=== PATIENT | male | born 1975 | race Two or more races ===

== ENCOUNTER 2018-12-02 07:46 | Emergency (ER) | payer MEDICAID ==
[~2018-12-02] VITALS: Ht 170.2 cm; Wt 75.7 kg
[2018-12-02 07:50] VITALS: Ht 170.2 cm; Wt 75.7 kg
[2018-12-02] MEDS ORDERED: NAPR-985 PO (09:32)
[2018-12-02 09:56] VITALS: BP 134/81; PULSE 56; RESP 18
--- NOTE | 2018-12-02 10:07 | ERD ---
ER Documentation Chief Complaint Chief Complaint RT INDEX FINGER SLAMMED ON CAR DOOR. HPI 43-year-old male presenting with pain to his right index finger. 1 week ago patient slammed his 4 fingers in the door however he has had continued pain to the distal tip of his right index finger. He denies any numbness or tingling. [id number]. Denies other medical problems. NKDA. Surgical history denies. Social history denies ROS All systems reviewed and are negative except as per history of present illness. Medications Home Meds Active Scripts Naproxen* (Naprosyn*) 500 Mg Tablet, 500 MG PO BID PRN for PAIN AND/OR INFLAMMATION, #30 TAB Prov:REGINA READ PA-C 12/02/18 Allergies Allergies: Coded Allergies: No Known Allergy (Unverified , 12/02/18) PMhx/Soc Medical and Surgical Hx: pt denies Medical Hx, pt denies Surgical Hx Hx Alcohol Use: No Hx Substance Use: No Hx Tobacco Use: No Smoking Status: Never smoker FmHx Family History: No diabetes, No coronary disease, No other Physical Exam Vitals Vital Signs Date Temp Pulse Resp B/P (MAP) Pulse Ox O2 O2 Flow FiO2 Time Delivery Rate 12/02/18 56 18 134/81 100 Room Air 09:56 (98) 12/02/18 96.6 79 16 150/90 99 07:50 (110) Physical Exam GENERAL: The patient is well-appearing, well-nourished, in no acute distress CHEST: Clear to auscultation bilaterally. There are no rales, wheezes or rhonchi. HEART: Regular rate and rhythm. No murmurs, clicks, rubs or gallops EXTREMITIES: Tender to palpation of the distal tip of the right index finger. Patient is able to isolate the DIP and PIP joint. Patient does have pain with movement. Pulses intact. NEUROLOGIC: Motor strength in all 4 extremities with 5 out of 5 strength. Sensation grossly intact. SKIN: There is no apparent rash or petechiae. The skin is warm and dry. Procedures/MDM DIAGNOSTIC IMAGING REPORT Patient: PARI ADAM : 1975 Age: 43 Sex: M MR #: [id number] DOS: 12/02/18 0812 Ordering MD: HARVINDER READ PA-C Location: [facility] Room/Bed: PROCEDURE: XR Right second finger CLINICAL INDICATION: Pain TECHNIQUE: AP, oblique and lateral views of the right 2nd finger were obtained. COMPARISON: No prior studies are available for comparison. FINDINGS: Noted is the acute minimally displaced oblique fracture of the shaft of the second distal phalanx with overlying soft tissue swelling. No other osseous, soft tissue or joint space abnormalities present. IMPRESSION: Minimally displaced acute oblique fracture shaft right second distal phalanx. ER Course: Finger splint applied in ED. Patient is neuro intact pre-and post splint application. MDM: 3-year-old male presenting with fracture to the distal tip of his right index finger. I have low suspicion for tendon or ligament rupture. I have low suspicion for neurovascular deficit. Patient is discharged with pain medication and recommendations of following up with hand specialist. Patient is told symptoms change or worsen to return immediately to the ER. All questions answered at discharge Departure Diagnosis: Primary Impression: Finger fracture Condition: Stable Patient Instructions: Finger and Toe Fractures (Broken Finger or Toe) Referrals: [facility] Additional Instructions: FOLLOW UP WITH YOUR PRIMARY CARE PHYSICIAN TOMORROW.Return to this facility if you are not improving as expected. REGINA READ PA-C Dec 02, 2018 10:07
== END 2018-12-02 09:55 | disposition home or self-care (01) ==
LOC: FTE 07:46
DX: S62.630A Displaced fracture of distal phalanx of right index finger, initial encounter for closed fracture (principal); W23.0XXA Caught, crushed, jammed, or pinched between moving objects, initial encounter; Y92.810 Car as the place of occurrence of the external cause
CPT/HCPCS: 29130; 73140; Z7502